=== PATIENT | male | born 1990 | race Caucasian/White ===

== ENCOUNTER 2017-11-04 22:57 | Emergency (ER) | payer SELFPAY ==
[~2017-11-04] VITALS: Ht 182.9 cm; Wt 88.6 kg
[2017-11-04 23:26] LABS: HEMATOCRIT 45.4 % (38.0-50.0); HEMOGLOBIN 15.8 G/DL (12.5-16.6); MCH 32.3 PG (29.0-34.0); MCHC 34.8 G/DL (30.0-36.0); MCV 92.8 FL (86-99); PLATELET COUNT 221 K/uL (156-360); RBC DIS.WIDTH-CV 13.2 % (11.8-14.6); RBC DIS.WIDTH-SD 45.7 % (39-53); RED BLOOD COUNT 4.89 M/uL (4.00-5.50); WHITE BLOOD COUNT 14.8 K/uL (4.1-10.2)
[2017-11-04 23:40] LABS: ALBUMIN 4.2 g/dL (3.2-4.8); CHLORIDE 109 mEq/L (99-109); POTASSIUM 3.8 mEq/L (3.7-5.4); SODIUM 143 mEq/L (136-147)
[2017-11-04 23:43] LABS: GLUCOSE 72 mg/dL (70-99); TOTAL PROTEIN 5.9 g/dL (6.4-8.3)
[2017-11-04 23:44] LABS: TOTAL BILIRUBIN 0.8 mg/dL (0.0-1.0)
[2017-11-04 23:45] LABS: SERUM ETHYL ALCOHOL < 10 mg/dL
[2017-11-04 23:46] LABS: ALKALINE PHOSPHATASE 71 IU/L (3-129); CREATININE 1.1 mg/dL (0.6-1.3)
[2017-11-04 23:47] LABS: UREA NITROGEN (BUN) 8 mg/dL (9-23)
[2017-11-04 23:48] LABS: AST (GOT) 18 IU/L (2-34)
[2017-11-04 23:49] LABS: ALT (GPT) 18 IU/L (3-49); GFR ESTIMATE (CALCULATED) > 59 mL/min/ (58.99-99999)
[2017-11-05 00:31] LABS: AMPHETAMINE PRESUMPTIVE POSITIVE (500 ng/mL); BARBITURATES NEGATIVE (200 ng/mL); BENZODIAZEPINES NEGATIVE (150 ng/mL); BUPRENORPHINE NEGATIVE (10 ng/mL); COCAINE NEGATIVE (150 ng/mL); METHADONE NEGATIVE (200 ng/mL); METHAMPHETAMINE NEGATIVE (500 ng/mL); OPIATES (MORPHINE) NEGATIVE (100 ng/mL); OXYCODONE NEGATIVE (100 ng/mL); PHENCYCLIDINE NEGATIVE (25 ng/mL); PROPOXYPHENE NEGATIVE (300 ng/mL); THC CANNABINOIDS NEGATIVE (50 ng/mL); TRICYCLIC ANTIDEPRESSANTS NEGATIVE (300 ng/mL)
[2017-11-05] MEDS ORDERED: ATIVAN1 MG PO (05:02)
[2017-11-05 14:00] VITALS: BP 121/81
== END 2017-11-05 14:45 | disposition home or self-care (01) ==
LOC: EME 22:57
PROVIDERS: Emergency Medicine
DX: F22 Delusional disorders (principal); F15.23 Other stimulant dependence with withdrawal; F17.200 Nicotine dependence, unspecified, uncomplicated
CPT/HCPCS: 80053; 84999; 85027; 90837; 99281; 99284; G0480